=== PATIENT | female | born 1985 | race Caucasian/White ===

== ENCOUNTER 2016-06-02 22:34 | Emergency (ER) | payer MEDICAID ==
[~2016-06-02] VITALS: Ht 27.9 cm; Wt 68.2 kg
[~2016-06-02 22:34] MED LIST: ADVAIR 250/28 DISKUS IH; ALBUTEROL S0.4 MG/ML; ALLERGY MED; ANTI-INFLAMMATORY; CEPHALEXIN500 M1 PO; CLARITIN10 MG PO; CLEOCIN; CLOTRIMAZOLE VA45 GM VG; DICLEGIS PO; ESTRACE1 MG PO; FLEXERIL 1010 MG/TAB PO; IBU800 M1 PO; IMPLANT BIRTH CONTRO; LEVEMIR100 U/ML SQ; LORTAB 5/500 501 TAB PO; LORTAB 7.5/5001 TAB PO; MEXILETINE150 MG PO; MIRENA52 MG IU; MOTRIN 800800 MG/TAB PO; NO HOME MEDICATIONS; NORCO 325 MG-51 TAB PO; NOVOLOG 100U100 U/M1; NOVOLOG 100U100 U/M1 SQ; PERCOCET 325 MG1 TA2 PO; PHENERGAN 25 TA25 MG PO; PRENATAL PO; PROTONIX40 MG PO; SEPTRA DS 8001 TAB PO; SOMA 350MG350 MG/TAB PO; TYLENOL 500MG500 MG PO; TYLENOL PM EXTR1 TA1 PO; ZOFRAN4 M1 PO; ZOLOFT 50MG50 MG PO; [UNRECOGNIZED DRUG - OTHER]
[2016-06-02 22:41] VITALS: BP 128/80; TEMP 98.1
[2016-06-02 23:33] LABS: BASO # 0.1 (0.0-0.2); BASO % 0.7 % (0.0-2.0); EOS # 0.1 (0.0-0.7); EOS % 0.6 % (0-4.0); GRAN # 8.4 (1.4-6.5); GRAN % 67.6 % (42.2-75.2); HEMATOCRIT 40.9 % (37.0-47.0); HEMOGLOBIN 13.9 g/dl (12.5-16.0); LYMPH # 2.9 (1.2-3.4); LYMPH % 23.1 % (20.0-51.0); MEAN CELL VOLUME 89 fl (80.0-100.0); MEAN CORPUSCULAR HEMOGLOBIN 30 pg (27.0-31.0); MEAN CORPUSCULAR HGB CONC 34 g/dl (33.0-37.0); MEAN PLATELET VOLUME 9.5 fl (7.4-10.4); MONO # 0.9 (0.1-0.6); MONO % 7.4 % (1.7-9.3); PLATELET COUNT 337 K/mm3 (130-400); REDCELL DISTRIBUTION WIDTH-CV 11.9 % (11.5-14.5); WHITE BLOOD COUNT 12.4 K/mm3 (4.8-10.8)
[2016-06-02 23:43] LABS: PH 6 (5-8); URINE APPEARANCE Hazy; URINE BACTERIA Rare /hpf; URINE BILIRUBIN Negative (NEGATIVE); URINE BLOOD 2+ (NEGATIVE); URINE COLOR Yellow; URINE GLUCOSE Negative (NEGATIVE); URINE KETONE Negative (NEGATIVE); URINE RBC 0-2 /hpf; URINE UROBILINOGEN Negative (NEGATIVE)
[2016-06-02 23:44] LABS: ADJUSTED CALCIUM 9.5 mg/dL (8.4-10.2); ALANINE AMINOTRANSFERASE 17 U/L (9-52); ALBUMIN 4.1 gm/dL (3.5-5.0); ALKALINE PHOSPHATASE 117 U/L (50-136); ANION GAP 11 mmol/L (7-16); BILIRUBIN,TOTAL 0.6 mg/dL (0.0-1.0); BLOOD UREA NITROGEN 15 mg/dL (7-17); CALCIUM 9.6 mg/dL (8.4-10.2); CARBON DIOXIDE 25 mmol/L (22-30); CHLORIDE 104 mmol/L (98-107); CREATININE, serum 0.65 mg/dL (0.52-1.25); GLUCOSE 108 mg/dL (74-106); LIPASE 112 U/L (23-300); POTASSIUM 3.4 mmol/L (3.4-5.0); SODIUM 140 mmol/L (137-145); TOTAL PROTEIN 7.5 gm/dL (6.4-8.2)
[2016-06-03] MEDS ORDERED: CIPRO 500MG TA500 MG PO (00:01)
[2016-06-03 00:43] VITALS: PULSE 75
== END 2016-06-03 00:43 | disposition home or self-care (01) ==
LOC: COL.ER 22:34
PROVIDERS: Physician Assistant
DX: N39.0 Urinary tract infection, site not specified (principal); R51 Headache; E11.9 Type 2 diabetes mellitus without complications; Z79.4 Long term (current) use of insulin
CPT/HCPCS: J2270; J2405; J2550; J7030

== ENCOUNTER 2016-08-07 21:42 | Emergency (ER) | payer MEDICAID ==
[~2016-08-07] VITALS: Ht 149.9 cm; Wt 70.0 kg
[~2016-08-07 21:42] MED LIST changes: +CIPRO 500MG TA500 MG PO
[2016-08-07 21:44] VITALS: BP 132/62; PULSE 77; TEMP 97.9
[2016-08-07] MEDS ORDERED: PRENATAL1 TA7 PO (21:48)
[2016-08-07 22:22] LABS: BASO # 0.1 (0.0-0.2); BASO % 0.8 % (0.0-2.0); EOS # 0.1 (0.0-0.7); EOS % 0.7 % (0-4.0); GRAN # 8.5 (1.4-6.5); GRAN % 69.2 % (42.2-75.2); HEMATOCRIT 39.6 % (37.0-47.0); HEMOGLOBIN 13.4 g/dl (12.5-16.0); LYMPH # 2.5 (1.2-3.4); LYMPH % 20.4 % (20.0-51.0); MEAN CELL VOLUME 89 fl (80.0-100.0); MEAN CORPUSCULAR HEMOGLOBIN 30 pg (27.0-31.0); MEAN CORPUSCULAR HGB CONC 34 g/dl (33.0-37.0); MEAN PLATELET VOLUME 9.4 fl (7.4-10.4); MONO % 8.1 % (1.7-9.3); PLATELET COUNT 310 K/mm3 (130-400); RED BLOOD COUNT 4.47 M/mm3 (4.10-5.30); WHITE BLOOD COUNT 12.3 K/mm3 (4.8-10.8)
[2016-08-07 22:26] LABS: PH 6 (5-8); URINE APPEARANCE Hazy; URINE BACTERIA None Seen /hpf; URINE BILIRUBIN Negative (NEGATIVE); URINE BLOOD Negative (NEGATIVE); URINE COLOR Straw; URINE GLUCOSE Negative (NEGATIVE); URINE KETONE Negative (NEGATIVE); URINE RBC 0-2 /hpf; URINE UROBILINOGEN Negative (NEGATIVE); URINE WBC 0-2 /hpf
[2016-08-07 22:32] LABS: ADJUSTED CALCIUM 9.3 mg/dL (8.4-10.2); ALBUMIN 4.3 gm/dL (3.5-5.0); BILIRUBIN,TOTAL 0.5 mg/dL (0.0-1.0); CALCIUM 9.5 mg/dL (8.4-10.2); CREATININE, serum 0.72 mg/dL (0.52-1.25); POTASSIUM 3.9 mmol/L (3.4-5.0); TOTAL PROTEIN 7.3 gm/dL (6.4-8.2)
== END 2016-08-07 22:45 | disposition home or self-care (01) ==
LOC: COL.ER 21:42
PROVIDERS: Emergency Medicine
DX: R10.84 Generalized abdominal pain (principal); N92.6 Irregular menstruation, unspecified; E11.9 Type 2 diabetes mellitus without complications; F32.9 Major depressive disorder, single episode, unspecified

== ENCOUNTER 2016-09-06 00:42 | Emergency (ER) | payer MEDICAID ==
[~2016-09-06] VITALS: Ht 149.9 cm; Wt 73.0 kg
[~2016-09-06 00:42] MED LIST changes: +PRENATAL1 TA7 PO
[2016-09-06 00:46] VITALS: TEMP 98.1
[2016-09-06 01:59] LABS: PH 5 (5-8); SQUAMOUS EPITHELIAL 0-2 /hpf; URINE APPEARANCE Turbid; URINE BACTERIA Rare /hpf; URINE BILIRUBIN Negative (NEGATIVE); URINE BLOOD Negative (NEGATIVE); URINE COLOR Amber; URINE GLUCOSE Negative (NEGATIVE); URINE KETONE Trace (NEGATIVE); URINE RBC 0-2 /hpf; URINE UROBILINOGEN Negative (NEGATIVE)
[2016-09-06 02:12] LABS: BASO # 0.1 (0.0-0.2); BASO % 0.6 % (0.0-2.0); EOS # 0.1 (0.0-0.7); EOS % 0.7 % (0-4.0); GRAN % 70.5 % (42.2-75.2); HEMATOCRIT 37.5 % (37.0-47.0); HEMOGLOBIN 12.8 g/dl (12.5-16.0); LYMPH # 2.5 (1.2-3.4); LYMPH % 19.6 % (20.0-51.0); MEAN CELL VOLUME 87 fl (80.0-100.0); MEAN CORPUSCULAR HEMOGLOBIN 30 pg (27.0-31.0); MEAN CORPUSCULAR HGB CONC 34 g/dl (33.0-37.0); MEAN PLATELET VOLUME 9.5 fl (7.4-10.4); MONO % 7.9 % (1.7-9.3); PLATELET COUNT 295 K/mm3 (130-400); WHITE BLOOD COUNT 12.7 K/mm3 (4.8-10.8)
[2016-09-06 02:24] LABS: ADJUSTED CALCIUM 8.7 mg/dL (8.4-10.2); ALBUMIN 4.1 gm/dL (3.5-5.0); BILIRUBIN,TOTAL 0.7 mg/dL (0.0-1.0); CALCIUM 8.8 mg/dL (8.4-10.2); CREATININE, serum 0.81 mg/dL (0.52-1.25); POTASSIUM 3.4 mmol/L (3.4-5.0); TOTAL PROTEIN 7.2 gm/dL (6.4-8.2)
[2016-09-06 02:42] VITALS: BP 129/84; PULSE 81
== END 2016-09-06 02:44 | disposition home or self-care (01) ==
LOC: COL.ER 00:42
PROVIDERS: Nurse Practitioner
DX: R10.2 Pelvic and perineal pain (principal); F32.9 Major depressive disorder, single episode, unspecified; Z87.891 Personal history of nicotine dependence; Z87.59 Personal history of other complications of pregnancy, childbirth and the puerperium; Z90.49 Acquired absence of other specified parts of digestive tract; Z87.19 Personal history of other diseases of the digestive system; Z32.02 Encounter for pregnancy test, result negative

== ENCOUNTER 2016-09-17 21:01 | Emergency (ER) | payer MEDICAID ==
[~2016-09-17] VITALS: Ht 149.9 cm; Wt 86.4 kg
[2016-09-17 21:03] VITALS: BP 111/67; PULSE 91; TEMP 98.5
== END 2016-09-17 22:09 | disposition home or self-care (01) ==
LOC: COL.ER 21:01
DX: R05 Cough (principal); Z32.01 Encounter for pregnancy test, result positive; E11.9 Type 2 diabetes mellitus without complications; Z79.4 Long term (current) use of insulin

== ENCOUNTER 2016-09-19 02:39 | Emergency (ER) | payer MEDICAID ==
[~2016-09-19] VITALS: Ht 149.9 cm; Wt 68.2 kg
[2016-09-19 02:41] VITALS: TEMP 98.3
[2016-09-19 03:29] LABS: VENOUS BLOOD GAS BE -1.9 (-4-4); VENOUS BLOOD GAS SITE VENIPUNCTURE
[2016-09-19 04:04] VITALS: BP 119/68; PULSE 87
== END 2016-09-19 04:04 | disposition home or self-care (01) ==
LOC: COL.ER 02:39
PROVIDERS: Emergency Medicine
DX: O99.512 Diseases of the respiratory system complicating pregnancy, second trimester (principal); J06.9 Acute upper respiratory infection, unspecified; Z3A.16 16 weeks gestation of pregnancy; O99.342 Other mental disorders complicating pregnancy, second trimester; F41.9 Anxiety disorder, unspecified; F32.9 Major depressive disorder, single episode, unspecified; O24.112 Pre-existing type 2 diabetes mellitus, in pregnancy, second trimester; E11.9 Type 2 diabetes mellitus without complications
CPT/HCPCS: J8540

== ENCOUNTER 2016-09-21 22:45 | Emergency (ER) | payer MEDICAID ==
[~2016-09-21] VITALS: Ht 149.9 cm; Wt 74.0 kg
[2016-09-21 22:52] VITALS: TEMP 98.2
[2016-09-21] MEDS ORDERED: PRENATAL (22:57)
[2016-09-22 00:17] LABS: HEMATOCRIT 40.9 % (37.0-47.0); HEMOGLOBIN 13.9 g/dl (12.5-16.0); MEAN CELL VOLUME 87 fl (80.0-100.0); MEAN CORPUSCULAR HEMOGLOBIN 30 pg (27.0-31.0); MEAN CORPUSCULAR HGB CONC 34 g/dl (33.0-37.0); MEAN PLATELET VOLUME 9.3 fl (7.4-10.4); PLATELET COUNT 361 K/mm3 (130-400); REDCELL DISTRIBUTION WIDTH-CV 12.3 % (11.5-14.5)
[2016-09-22 00:19] LABS: ADD PATHOLOGY DIFF REVIEW NO
[2016-09-22 00:21] LABS: PH 5 (5-8); URINE APPEARANCE Clear; URINE BACTERIA Rare /hpf; URINE BILIRUBIN Negative (NEGATIVE); URINE BLOOD Negative (NEGATIVE); URINE COLOR Yellow; URINE GLUCOSE Negative (NEGATIVE); URINE KETONE Negative (NEGATIVE); URINE RBC 0-2 /hpf; URINE UROBILINOGEN Negative (NEGATIVE); URINE WBC 0-2 /hpf
[2016-09-22 00:31] LABS: NEUTROPHILS 72 % (42.0-75.2); TOTAL CELLS COUNTED 100
[2016-09-22 03:34] VITALS: BP 116/76; PULSE 66
[2016-09-22 07:40] LABS: CHLAMYDIA/TRACH by PCR Female NOT DETECTED; NEISSERIA GON by PCR Female NOT DETECTED
== END 2016-09-22 03:34 | disposition home or self-care (01) ==
LOC: COL.ER 22:45
PROVIDERS: Nurse Practitioner
DX: O20.0 Threatened abortion (principal); O26.891 Other specified pregnancy related conditions, first trimester; R10.12 Left upper quadrant pain; Z3A.01 Less than 8 weeks gestation of pregnancy; N89.8 Other specified noninflammatory disorders of vagina

== ENCOUNTER 2016-12-02 14:56 | Emergency (ER) | payer MEDICAID ==
[~2016-12-02] VITALS: Ht 149.9 cm; Wt 70.0 kg
[~2016-12-02 14:56] MED LIST changes: +PRENATAL
[2016-12-02 15:08] VITALS: TEMP 98.6
[2016-12-02 16:00] LABS: BASO % 0.3 % (0.0-2.0); EOS % 0.2 % (0-4.0); GRAN # 11.8 (1.4-6.5); GRAN % 85.5 % (42.2-75.2); HEMATOCRIT 40.7 % (37.0-47.0); HEMOGLOBIN 13.8 g/dl (12.5-16.0); LYMPH # 0.8 (1.2-3.4); LYMPH % 5.6 % (20.0-51.0); MEAN CELL VOLUME 88 fl (80.0-100.0); MEAN CORPUSCULAR HEMOGLOBIN 30 pg (27.0-31.0); MEAN CORPUSCULAR HGB CONC 34 g/dl (33.0-37.0); MEAN PLATELET VOLUME 9.4 fl (7.4-10.4); MONO % 7.5 % (1.7-9.3); PLATELET COUNT 282 K/mm3 (130-400); RED BLOOD COUNT 4.62 M/mm3 (4.10-5.30); REDCELL DISTRIBUTION WIDTH-CV 12.4 % (11.5-14.5); WHITE BLOOD COUNT 13.8 K/mm3 (4.8-10.8)
[2016-12-02 16:25] LABS: ADJUSTED CALCIUM 8.9 mg/dL (8.4-10.2); ALBUMIN 4.2 gm/dL (3.5-5.0); BILIRUBIN,TOTAL 0.9 mg/dL (0.0-1.0); C-REACTIVE PROTEIN 2.2 mg/dL (0.0-0.9); CALCIUM 9.1 mg/dL (8.4-10.2); CREATININE, serum 0.65 mg/dL (0.52-1.25); POTASSIUM 3.5 mmol/L (3.4-5.0); TOTAL PROTEIN 7.8 gm/dL (6.4-8.2)
[2016-12-02] MEDS ORDERED: PHENERGAN 25 TA25 MG PO (18:53)
[2016-12-02 19:38] LABS: PH 5 (5-8); URINE APPEARANCE Clear; URINE BACTERIA None Seen /hpf; URINE BILIRUBIN Negative (NEGATIVE); URINE BLOOD 2+ (NEGATIVE); URINE COLOR Yellow; URINE GLUCOSE Negative (NEGATIVE); URINE KETONE Negative (NEGATIVE); URINE RBC 0-2 /hpf; URINE UROBILINOGEN Negative (NEGATIVE); URINE WBC 0-2 /hpf
[2016-12-02 19:48] VITALS: BP 105/55; PULSE 84
== END 2016-12-02 19:49 | disposition home or self-care (01) ==
LOC: COL.ER 14:56
PROVIDERS: Nurse Practitioner
DX: R10.31 Right lower quadrant pain (principal); R11.2 Nausea with vomiting, unspecified; Z90.49 Acquired absence of other specified parts of digestive tract
CPT/HCPCS: J1170; J2405; J2550; J7030; Q9967

== ENCOUNTER 2017-02-06 10:55 | Emergency (ER) | payer MEDICAID ==
[~2017-02-06] VITALS: Ht 149.9 cm; Wt 68.2 kg
[2017-02-06 10:57] VITALS: BP 137/63; TEMP 98.8
[2017-02-06] MEDS ORDERED: PRENATAL 191 TAB PO (11:02)
[2017-02-06] MEDS ORDERED: LEVEMIR FLEX100 U/ML SQ (11:13)
[2017-02-06 11:33] LABS: COLLECTION METHOD CLEAN CATCH
[2017-02-06 11:50] LABS: MUCOUS Present /lpf; PH 5 (5-8); URINE APPEARANCE Hazy; URINE BACTERIA Rare /hpf; URINE BILIRUBIN Negative (NEGATIVE); URINE BLOOD 1+ (NEGATIVE); URINE COLOR Yellow; URINE GLUCOSE Negative (NEGATIVE); URINE KETONE Negative (NEGATIVE); URINE LEUKOCYTE ESTERASE 1+ (NEGATIVE); URINE PROTEIN(semi-quant) Negative (NEGATIVE); URINE RBC 0-2 /hpf; URINE UROBILINOGEN Negative (NEGATIVE)
[2017-02-06 12:45] LABS: BASO # 0.1 (0.0-0.2); BASO % 0.5 % (0.0-2.0); EOS # 0.1 (0.0-0.7); EOS % 0.5 % (0-4.0); GRAN # 7.3 (1.4-6.5); GRAN % 76.7 % (42.2-75.2); HEMATOCRIT 42.4 % (37.0-47.0); HEMOGLOBIN 14.1 g/dl (12.5-16.0); LYMPH # 1.5 (1.2-3.4); LYMPH % 15.1 % (20.0-51.0); MEAN CELL VOLUME 90 fl (80.0-100.0); MEAN CORPUSCULAR HEMOGLOBIN 30 pg (27.0-31.0); MEAN CORPUSCULAR HGB CONC 33 g/dl (33.0-37.0); MONO # 0.6 (0.1-0.6); MONO % 6.6 % (1.7-9.3); PLATELET COUNT 329 K/mm3 (130-400); RED BLOOD COUNT 4.73 M/mm3 (4.10-5.30); WHITE BLOOD COUNT 9.6 K/mm3 (4.8-10.8)
[2017-02-06 12:55] LABS: ADJUSTED CALCIUM 9.3 mg/dL (8.4-10.2); ALBUMIN 4.7 gm/dL (3.5-5.0); BILIRUBIN,TOTAL 0.5 mg/dL (0.0-1.0); CALCIUM 9.9 mg/dL (8.4-10.2); CREATININE, serum 0.83 mg/dL (0.52-1.25); POTASSIUM 4.3 mmol/L (3.4-5.0)
[2017-02-06 13:28] VITALS: PULSE 68
== END 2017-02-06 13:29 | disposition home or self-care (01) ==
LOC: COL.ER 10:55
PROVIDERS: Physician Assistant
DX: R19.7 Diarrhea, unspecified (principal); R10.9 Unspecified abdominal pain; E11.9 Type 2 diabetes mellitus without complications; Z90.49 Acquired absence of other specified parts of digestive tract; Z32.02 Encounter for pregnancy test, result negative; Z79.4 Long term (current) use of insulin

== ENCOUNTER → 2017-03-11 | Outpatient (CLI) | payer MEDICAID ==
[~2017-03-11] MED LIST changes: +LEVEMIR FLEX100 U/ML SQ; +PRENATAL 191 TAB PO
== END ==
LOC: SUN.DIA 10:34
DX: E11.9 Type 2 diabetes mellitus without complications (principal); Z79.4 Long term (current) use of insulin; Z71.3 Dietary counseling and surveillance; Z87.891 Personal history of nicotine dependence
CPT/HCPCS: G0108

== ENCOUNTER → 2017-03-11 | Outpatient (CLI) | payer MEDICAID | LOC: SUN.DIA | DX: Z01.89 Encounter for other specified special examinations (principal) ==

== ENCOUNTER 2017-05-14 18:26 | Emergency (ER) | payer MEDICAID ==
[~2017-05-14] VITALS: Ht 149.9 cm; Wt 68.2 kg
[2017-05-14 18:40] VITALS: BP 122/78; TEMP 98.6
[2017-05-14 19:42] VITALS: PULSE 83
== END 2017-05-14 19:43 | disposition home or self-care (01) ==
LOC: COL.ER 18:26
DX: B34.9 Viral infection, unspecified (principal); E11.9 Type 2 diabetes mellitus without complications; Z90.49 Acquired absence of other specified parts of digestive tract; Z79.4 Long term (current) use of insulin

== ENCOUNTER → 2017-08-27 | Outpatient (REF) | LOC: ZLAB.WCH 17:48 | DX: Z01.89 Encounter for other specified special examinations (principal) ==

== ENCOUNTER → 2018-01-26 | Outpatient (CLI) | payer MEDICAID | LOC: SUN.DIA 03-24 09:44 | DX: E11.9 Type 2 diabetes mellitus without complications (principal); Z79.4 Long term (current) use of insulin | CPT/HCPCS: G0108 ==

== ENCOUNTER → 2018-02-02 | Outpatient (CLI) | payer MEDICAID | LOC: SUN.DIA 10:40 | DX: E11.9 Type 2 diabetes mellitus without complications (principal); Z79.4 Long term (current) use of insulin | CPT/HCPCS: G0108 ==

== ENCOUNTER → 2018-02-08 | Outpatient (CLI) | payer MEDICAID | LOC: SUN.DIA 13:31 | DX: E11.9 Type 2 diabetes mellitus without complications (principal); Z79.4 Long term (current) use of insulin | CPT/HCPCS: G0108 ==

== ENCOUNTER → 2018-03-21 | Outpatient (CLI) | payer MEDICAID | LOC: SUN.DIA 03-08 13:56 | DX: E11.9 Type 2 diabetes mellitus without complications (principal); Z79.4 Long term (current) use of insulin | CPT/HCPCS: G0108 ==

== ENCOUNTER → 2018-05-02 | Outpatient (CLI) | payer MEDICAID | LOC: SUN.DIA 10:51 | DX: E11.9 Type 2 diabetes mellitus without complications (principal); Z79.4 Long term (current) use of insulin | CPT/HCPCS: G0108 ==

== ENCOUNTER → 2018-05-09 | Outpatient (CLI) | payer MEDICAID | LOC: SUN.DIA 10:44 | DX: E11.9 Type 2 diabetes mellitus without complications (principal); Z79.4 Long term (current) use of insulin | CPT/HCPCS: G0108 ==

== ENCOUNTER 2018-05-13 18:29 | Outpatient (CLI) | payer MEDICAID ==
[~2018-05-13] VITALS: Ht 149.9 cm; Wt 70.0 kg
--- NOTE | 2018-05-13 18:35 | NUR ---
Ambulatory to unit, accompnied by significant other and young son. Pt reports pelvic pressure. Pt orilented to room, monitor, plan of care. Questions invited and answered.
[2018-05-13 19:02] VITALS: BP 118/65; PULSE 91; TEMP 98.3
[2018-05-13] MEDS ORDERED: BENADRYL25 M2 PO (19:26)
[2018-05-13 19:30] VITALS: BP 111/60; PULSE 90
[2018-05-13] MEDS ORDERED: BASAGLAR K100 UNIT/1 SQ (19:30)
--- NOTE | 2018-05-13 19:35 | NUR ---
Repeat SVE with no changes, no bleeding or loss of fluid..
--- NOTE | 2018-05-13 19:50 | NUR ---
Discharge instructions reviewed with pt and spouse. Questions invited AND ANSWERED. AMBULATROY OFF UNIT.
== END 2018-05-13 19:50 | disposition home or self-care (01) ==
LOC: LDRO 18:29
DX: O26.893 Other specified pregnancy related conditions, third trimester (principal); R10.2 Pelvic and perineal pain; Z3A.28 28 weeks gestation of pregnancy

== ENCOUNTER → 2018-05-16 | Outpatient (CLI) | payer MEDICAID ==
[~2018-05-16] MED LIST changes: +BASAGLAR K100 UNIT/1 SQ; +BENADRYL25 M2 PO
== END ==
LOC: SUN.DIA
DX: E11.9 Type 2 diabetes mellitus without complications (principal); Z79.4 Long term (current) use of insulin
CPT/HCPCS: G0108

== ENCOUNTER → 2018-05-23 | Outpatient (CLI) | payer MEDICAID | LOC: SUN.DIA 12:44 | DX: E11.9 Type 2 diabetes mellitus without complications (principal); Z79.4 Long term (current) use of insulin | CPT/HCPCS: G0108 ==

== ENCOUNTER → 2018-06-13 | Outpatient (CLI) | payer MEDICAID | LOC: SUN.DIA 06-07 14:05 | DX: E11.9 Type 2 diabetes mellitus without complications (principal); Z79.4 Long term (current) use of insulin | CPT/HCPCS: G0108 ==

== ENCOUNTER → 2018-06-27 | Outpatient (CLI) | payer MEDICAID | LOC: SUN.DIA 11:11 | DX: E11.9 Type 2 diabetes mellitus without complications (principal); Z79.4 Long term (current) use of insulin | CPT/HCPCS: G0108 ==

== ENCOUNTER → 2018-07-04 | Outpatient (CLI) | payer MEDICAID | LOC: SUN.DIA 10:12 | DX: E11.9 Type 2 diabetes mellitus without complications (principal); Z79.4 Long term (current) use of insulin | CPT/HCPCS: G0108 ==

== ENCOUNTER 2018-07-09 10:01 | Outpatient (CLI) | payer MEDICAID ==
[~2018-07-09] VITALS: Ht 149.9 cm; Wt 72.7 kg
[2018-07-09] MEDS ORDERED: NOVOLOG FLEX100 U/ML SQ (10:15)
--- NOTE | 2018-07-09 10:15 | NUR ---
G7L4 at 36.6 weeks gestation to LDR6 with spouse and child. She c/o having irregular contractions and vaginal pressure. She denies bleeding or leaking of fluid. EFMs explained and applied. FHR 135 bpm and reactive. No CTX per toco or patient reports. VSS. SVE . Plan of care reviewed with patient.
[2018-07-09 10:16] VITALS: BP 116/57; PULSE 75; TEMP 98.2
[2018-07-09] MEDS ORDERED: PRENATAL VITAMI1 TA3 PO (10:16)
== END 2018-07-09 10:45 | disposition home or self-care (01) ==
LOC: LDRO 10:01
DX: O62.9 Abnormality of forces of labor, unspecified (principal); O26.893 Other specified pregnancy related conditions, third trimester; R10.2 Pelvic and perineal pain; Z3A.36 36 weeks gestation of pregnancy

== ENCOUNTER 2018-07-12 13:20 | Outpatient (CLI) | payer MEDICAID ==
[~2018-07-12] VITALS: Ht 149.9 cm; Wt 73.2 kg
[2018-07-12 13:24] VITALS: BP 114/60; PULSE 104; TEMP 98.2
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
--- NOTE | 2018-07-12 14:35 | NUR ---
Repeat SVE with no change. Discharge instructions reviewed.
== END 2018-07-12 14:50 | disposition home or self-care (01) ==
LOC: LDRO 13:20
DX: O62.9 Abnormality of forces of labor, unspecified (principal); O9A.213 Injury, poisoning and certain other consequences of external causes complicating pregnancy, third trimester; O26.893 Other specified pregnancy related conditions, third trimester; R10.2 Pelvic and perineal pain; Z3A.37 37 weeks gestation of pregnancy

== ENCOUNTER → 2018-07-12 | Outpatient (CLI) | payer MEDICAID ==
[~2018-07-12] MED LIST changes: +NOVOLOG FLEX100 U/ML SQ; +PRENATAL VITAMI1 TA3 PO
== END ==
LOC: LDRO 12:27 → SUN.DIA 12:27
DX: E11.9 Type 2 diabetes mellitus without complications (principal); Z79.4 Long term (current) use of insulin
CPT/HCPCS: G0108

== ENCOUNTER 2018-07-16 19:23 | Outpatient (CLI) | payer MEDICAID ==
[2018-07-16] VITALS (8 sets, daily range): BP systolic 115–131; BP diastolic 58–80; PULSE 93–107; TEMP 97.8–97.9
[~2018-07-16] VITALS: Ht 149.9 cm; Wt 74.1 kg
[2018-07-16 22:26] LABS: COLLECTION METHOD CLEAN CATCH
[2018-07-16 22:32] LABS: MUCOUS Present /lpf; PH 5 (5-8); URINE APPEARANCE Hazy; URINE BACTERIA Rare /hpf; URINE BILIRUBIN Negative (NEGATIVE); URINE BLOOD Negative (NEGATIVE); URINE CALCIUM OXALATE CRYSTAL Present /hpf; URINE COLOR Yellow; URINE GLUCOSE Negative (NEGATIVE); URINE KETONE 1+ (NEGATIVE); URINE LEUKOCYTE ESTERASE Negative (NEGATIVE); URINE NITRATE Negative (NEGATIVE); URINE PROTEIN(semi-quant) Negative (NEGATIVE); URINE RBC 0-2 /hpf; URINE UROBILINOGEN Negative (NEGATIVE)
== END 2018-07-16 23:00 | disposition home or self-care (01) ==
LOC: LDRO 19:23
PROVIDERS: Obstetrics & Gynecology
DX: O62.9 Abnormality of forces of labor, unspecified (principal); O46.93 Antepartum hemorrhage, unspecified, third trimester; Z3A.37 37 weeks gestation of pregnancy

== ENCOUNTER 2018-07-18 01:18 | Inpatient (IN) | payer MEDICAID ==
[2018-07-18] VITALS (35 sets, daily range): BP systolic 86–133; BP diastolic 42–88; PULSE 62–113; TEMP 97.9–98.7
[~2018-07-18] VITALS: Ht 149.9 cm; Wt 74.1 kg
--- NOTE | 2018-07-18 01:35 | NUR ---
0135 G7L4 38.1 WEEK GEST TO LR5 WITH C/O CONTRACTIONS. EFM ON. SVE /-2. ADM ASSESSMENT DONE. IS INSULIN DEPENDENT TYPE II DIABETIC. STATES LAST BLOOD SUGAR AT [address] REYES NOTIFIED OF PT AND ASSESSMENT. ORDER TO ADMIT AND START IV OF NS. HISTOLOGY AIDE CALLED FOR EPID PLACEMENT
--- NOTE | 2018-07-18 02:00 | NUR ---
0200 ACCU CHECK DONE = 100. IV NS STARTED. BREATHING THRU CONTRACTIONS.
[2018-07-18 02:14] LABS: HEMOGLOBIN 11.6 g/dl (12.5-16.0); MEAN CELL VOLUME 90 fl (80.0-100.0); MEAN CORPUSCULAR HEMOGLOBIN 31 pg (27.0-31.0); MEAN CORPUSCULAR HGB CONC 34 g/dl (33.0-37.0); PLATELET COUNT 177 K/mm3 (130-400); RED BLOOD COUNT 3.78 M/mm3 (4.10-5.30); REDCELL DISTRIBUTION WIDTH-CV 13.7 % (11.5-14.5)
[2018-07-18] MEDS ORDERED: TYLENOL PM EXTR1 TA1 PO (02:25)
[2018-07-18 02:39] LABS: BAND 4 % (0-10); EOSINOPHIL 1 % (0-4); LYMPHOCYTE 13 % (20.0-51.0); NEUTROPHILS 81 % (42.0-75.2); PLATELET ESTIMATE NORMAL (NORMAL)
--- NOTE | 2018-07-18 04:15 | NUR ---
ACCUCHECK 95
--- NOTE | 2018-07-18 04:25 | NUR ---
DR REYES HERE. SVE. PRACTICE PUSHING, CERVIX REMAINS. TO LL . NOT PUSHING NOW.
--- NOTE | 2018-07-18 04:44 | NUR ---
AROM 0350 CLEAR
--- NOTE | 2018-07-18 06:10 | NUR ---
ACCUCHECK 87
--- NOTE | 2018-07-18 06:26 | NUR ---
ACCU CHECK 91
--- NOTE | 2018-07-18 07:20 | NUR ---
SVE per this RN C/+1. Dr. Fong requested for delivery. 0780-Dr. Fong at bedside. Begins pushing with pt. 0751- of viable male infant attended by Dr. Fong. Cord clamped x 2. Cut from umbilicus. Infant dried and placed on mother's abdomen. Apgars 8//9. Care of to Jany Dewitt RN. 0755- of placenta. Fundus firm at umbilicus. Bleeding WNL. Pitocin bolus infusing. Perineum intact. Pericare performed. Ice pack applied. Pt updated on POC. Safety reviewed. No questions or concerns at this time.
--- NOTE | 2018-07-18 21:45 | NUR ---
RAGHU ACCCARLTONECK 107
[2018-07-19 01:46] VITALS: BP 108/67; PULSE 75; TEMP 98.1
--- NOTE | 2018-07-19 05:53 | NUR ---
PT GAVE OWN BASAGLAR 3 UNITS AT 2130 LAST NIGHT
[2018-07-19 07:25] VITALS: BP 114/73; PULSE 77; TEMP 97.9
[2018-07-19] MEDS ORDERED: IBU600 MG PO (08:34)
--- NOTE | 2018-07-19 09:23 | NUR ---
Initial visit; Mom thanked for looking in on her and offering congratulaions for the the of her first daughter, having four boys at home. thanked Mandi for choosing [facility].
--- NOTE | 2018-07-19 14:46 | NUR ---
plate put in worker met with patient to assess for needs. Patient states this is her 5th child. Patient has a 2year old son at home. Patient states her oldest son was removed by the State and that he had multiple mental health diagnosis. Patient stated she gave up her rights to two sons their their respective fathers as she never got to see them, only paid child support. Patient states she lives with the father of her two youngest children and that he has disability. Father of baby is currently in [place] due to financial bills that are owed. Patient states she does not plan to return to work. Patient states she is not currently feeling that she is anxous or depressed and is aware how to access [facility]. Patient states she has a car seat and all needed supplies for her baby. Patient states she is enrolled in [facility]. Worker provided written resources. Worker filed DCF report due to previous child removed from her care and lack of resources. DCF #[id number]. Worker collaborated with Dr Silva and nursing regarding the above information.
== END 2018-07-19 13:05 | disposition home or self-care (01) | DRG 807 ==
LOC: LDRO 01:18 → OB 01:48 → LDR 01:48 → OB 11:31
PROVIDERS: Obstetrics & Gynecology; ADMIT Obstetrics & Gynecology
PROC: 10E0XZZ Delivery of Products of Conception, External Approach (ICD-10-PCS; principal; 2018-07-18)
DX: O24.113 Pre-existing type 2 diabetes mellitus, in pregnancy, third trimester (principal); Z37.0 Single live birth; O99.344 Other mental disorders complicating childbirth; F32.9 Major depressive disorder, single episode, unspecified; F41.9 Anxiety disorder, unspecified; O99.612 Diseases of the digestive system complicating pregnancy, second trimester; K21.9 Gastro-esophageal reflux disease without esophagitis; Z79.4 Long term (current) use of insulin; Z3A.38 38 weeks gestation of pregnancy
CPT/HCPCS: J2405; J2590; J2795; J7030

== ENCOUNTER 2019-01-01 14:16 | Emergency (ER) | payer MEDICAID ==
[~2019-01-01] VITALS: Ht 149.9 cm; Wt 68.2 kg
[~2019-01-01 14:16] MED LIST changes: +IBU600 MG PO
[2019-01-01 14:22] VITALS: BP 126/58; TEMP 98.3
[2019-01-01 15:27] VITALS: PULSE 72
== END 2019-01-01 15:27 | disposition home or self-care (01) ==
LOC: COL.ER 14:16
DX: M25.532 Pain in left wrist (principal); E11.9 Type 2 diabetes mellitus without complications; Z79.4 Long term (current) use of insulin

== ENCOUNTER 2019-03-31 21:26 | Emergency (ER) | payer MEDICAID ==
[~2019-03-31] VITALS: Ht 149.9 cm; Wt 68.2 kg
[2019-03-31 21:39] VITALS: TEMP 97.6
[2019-04-01 01:04] VITALS: BP 124/62; PULSE 81
[2019-04-02] MEDS ORDERED: FLEXERIL 1010 MG/TAB PO (16:44)
== END 2019-04-01 01:05 | disposition home or self-care (01) ==
LOC: COL.ER 21:26
DX: S40.012A Contusion of left shoulder, initial encounter (principal); M54.5 Low back pain; R40.2412 Glasgow coma scale score 13-15, at arrival to emergency department; Z79.4 Long term (current) use of insulin; W00.0XXA Fall on same level due to ice and snow, initial encounter; Y92.009 Unspecified place in unspecified non-institutional (private) residence as the place of occurrence of the external cause

== ENCOUNTER 2019-04-02 15:48 | Emergency (ER) | payer MEDICAID ==
[~2019-04-02] VITALS: Ht 149.9 cm; Wt 68.2 kg
[2019-04-02 16:00] VITALS: BP 116/56; TEMP 97.3
[2019-04-02] MEDS ORDERED: FLEXERIL 1010 MG/TAB PO (16:44)
[2019-04-02 17:39] VITALS: PULSE 73
== END 2019-04-02 17:39 | disposition home or self-care (01) ==
LOC: COL.ER 15:48
PROVIDERS: Emergency Medicine
DX: S39.011A Strain of muscle, fascia and tendon of abdomen, initial encounter (principal); M54.5 Low back pain; Z88.1 Allergy status to other antibiotic agents; W00.0XXA Fall on same level due to ice and snow, initial encounter

== ENCOUNTER → 2019-12-25 | Outpatient (CLI) | payer MEDICAID | LOC: DIA.ED 09:20 | DX: O24.419 Gestational diabetes mellitus in pregnancy, unspecified control (principal) | CPT/HCPCS: G0108 ==

== ENCOUNTER 2020-01-02 16:29 | Emergency (ER) | payer MEDICAID ==
[~2020-01-02] VITALS: Ht 149.9 cm; Wt 72.7 kg
[2020-01-02 16:31] VITALS: BP 115/59; TEMP 97.9
[2020-01-02] MEDS ORDERED: CRUTCHES MC (17:27)
[2020-01-02 18:19] VITALS: PULSE 79
== END 2020-01-02 18:10 | disposition home or self-care (01) ==
LOC: COL.ER 16:29
DX: O9A.212 Injury, poisoning and certain other consequences of external causes complicating pregnancy, second trimester (principal); S93.401A Sprain of unspecified ligament of right ankle, initial encounter; E11.9 Type 2 diabetes mellitus without complications; Z3A.15 15 weeks gestation of pregnancy; Z88.1 Allergy status to other antibiotic agents; Z79.4 Long term (current) use of insulin; W10.1XXA Fall (on)(from) sidewalk curb, initial encounter; Y92.410 Unspecified street and highway as the place of occurrence of the external cause

== ENCOUNTER 2020-01-07 15:09 | Emergency (ER) | payer MEDICAID ==
[~2020-01-07] VITALS: Ht 149.9 cm; Wt 72.7 kg
[~2020-01-07 15:09] MED LIST changes: +CRUTCHES MC
[2020-01-07 15:14] VITALS: TEMP 98.3
[2020-01-07] MEDS ORDERED: TYLENOL 500MG500 MG PO (15:25)
[2020-01-07 16:30] VITALS: BP 126/61; PULSE 92
== END 2020-01-07 16:30 | disposition home or self-care (01) ==
LOC: COL.ER 15:09
DX: S93.401A Sprain of unspecified ligament of right ankle, initial encounter (principal); F17.200 Nicotine dependence, unspecified, uncomplicated; Z90.49 Acquired absence of other specified parts of digestive tract; W19.XXXA Unspecified fall, initial encounter

== ENCOUNTER → 2020-01-10 | Outpatient (CLI) | payer MEDICAID | LOC: DIA.ED | DX: O24.419 Gestational diabetes mellitus in pregnancy, unspecified control (principal); Z79.4 Long term (current) use of insulin | CPT/HCPCS: G0108 ==

== ENCOUNTER → 2020-01-31 | Outpatient (CLI) | payer MEDICAID | LOC: DIA.ED 08:06 | DX: O24.419 Gestational diabetes mellitus in pregnancy, unspecified control (principal); Z79.4 Long term (current) use of insulin | CPT/HCPCS: G0108 ==

== ENCOUNTER 2020-03-06 11:00 | Outpatient (RCR) | payer MEDICAID ==
[2020-04-16] MEDS ORDERED: PRENATAL TABLET PO (09:42)
[2020-04-16] MEDS ORDERED: UNISOM25 MG PO (09:42)
[2020-04-16] MEDS ORDERED: BENADRYL25 M2 PO (09:42)
== END 2020-04-15 | disposition home or self-care (01) ==
LOC: MKS.ESL.PT
DX: S93.401A Sprain of unspecified ligament of right ankle, initial encounter (principal)

== ENCOUNTER 2020-04-16 09:15 | Outpatient (CLI) | payer MEDICAID ==
[~2020-04-16] VITALS: Ht 149.9 cm; Wt 76.4 kg
--- NOTE | 2020-04-16 09:20 | NUR ---
919- Pt arrives on unit ambulatory with complaints of intermittent lower abd cramping, vaginal pressure and feeling like she "is peeing herself more frequently". Pt into bathroom, Cup given to CCUA. 924- Pt into bed, EFM and TOCO on and tracing. Pt denies VB and regular contractions. Pt denies intercourse in the past 24hrs. +FM per Pt. 929- Amniotrace swab by this RN, negative. SVE closed/high. Romy Marquez RN at bedside to assist with admission.
[2020-04-16] MEDS ORDERED: PRENATAL TABLET PO (09:42)
[2020-04-16] MEDS ORDERED: BENADRYL25 M2 PO (09:42)
[2020-04-16] MEDS ORDERED: UNISOM25 MG PO (09:42)
[2020-04-16 10:04] VITALS: BP 121/58; PULSE 82; TEMP 97.9
== END 2020-04-16 10:15 | disposition home or self-care (01) ==
LOC: LDRO 09:15
DX: O62.9 Abnormality of forces of labor, unspecified (principal); Z3A.30 30 weeks gestation of pregnancy

== ENCOUNTER 2020-05-13 14:56 | Outpatient (CLI) | payer MEDICAID ==
[~2020-05-13] VITALS: Ht 149.9 cm; Wt 77.3 kg
[~2020-05-13 14:56] MED LIST changes: +PRENATAL TABLET PO; +UNISOM25 MG PO
--- NOTE | 2020-05-13 15:00 | NUR ---
1500- Pt arrives on unit ambulatory with complaints of constant lower back pain and pelvic pain. Denies regular contractions, LOF, or VB. +FM per Pt. 1504- Pt into bed, EFM and TOCO on and tracing. O2 sat monitor on and tracing maternal HR. VSS. Assessments completed. Pt given water to drink and call light within reach.
[2020-05-13] MEDS ORDERED: LANTUS SOLOS100 U/ML SQ (15:21)
[2020-05-13 15:30] VITALS: BP 120/64; PULSE 102
[2020-05-13 16:10] VITALS: BP 111/59; PULSE 109
--- NOTE | 2020-05-13 16:20 | NUR ---
1610- EFM and TOCO off. Pt up to change into street clothes. 1615- Discharge paperwork given and explained. Pt denies questions. 1620- Pt ambulates off unit in stable condition.
== END 2020-05-13 16:20 | disposition home or self-care (01) ==
LOC: LDRO 14:56
DX: O26.899 Other specified pregnancy related conditions, unspecified trimester (principal); M54.5 Low back pain; R10.2 Pelvic and perineal pain; Z3A.01 Less than 8 weeks gestation of pregnancy

== ENCOUNTER 2020-05-27 10:52 | Outpatient (CLI) | payer MEDICAID ==
[~2020-05-27] VITALS: Ht 149.9 cm; Wt 77.7 kg
[~2020-05-27 10:52] MED LIST changes: +LANTUS SOLOS100 U/ML SQ
[2020-05-27 11:05] VITALS: BP 141/67; PULSE 92; TEMP 98.2
--- NOTE | 2020-05-27 11:29 | NUR ---
1105 PATIENT HERE FOR COMPLAINTS OF ALOT OF PRESSURE IN BUTTOCKS. PATIENT STATES THAT SHE IS SO UNCOMFORTABLE THAT SHE IS UNABLE TO EATOR DRINK ANYTHING. SVE BY A SUZANNE RN FT/40/HIGH. IRREGULAR CONTRACTIONS ON MONITOR , PATIENT STATES IS NOT FEELING ANY CONTRACTIONS. FHT [address] DÍAZ CALLED AND UPDATED AND ORDERS TO MONITOR PATIENT FOR HOUR IF NO CHANGE MAY SEND HOME
[2020-05-27 12:23] VITALS: BP 122/59; PULSE 87
--- NOTE | 2020-05-27 12:24 | NUR ---
1210 SVE UNCHANGED. ALL DISCHARGE IN STRUCTIONS GIVEN TO PATIENT WITH VERBAL UNDERSTANDING NOTED. PATIENT DISMISSED AT THIS TIME.
== END 2020-05-27 12:26 | disposition home or self-care (01) ==
LOC: LDRO 10:52 → LDR 10:52 → LDRO 11:10 → LDR 12:26
DX: O26.893 Other specified pregnancy related conditions, third trimester (principal); R10.9 Unspecified abdominal pain; Z3A.36 36 weeks gestation of pregnancy
CPT/HCPCS: OP

== ENCOUNTER 2020-06-06 11:20 | Outpatient (CLI) | payer MEDICAID ==
[~2020-06-06] VITALS: Ht 149.9 cm; Wt 78.6 kg
--- NOTE | 2020-06-06 11:25 | NUR ---
1125- Pt presents to unit ambulatory with complaints of SROM last night. She states she has had 2 other gushes of fluid since then. She denies UCs or vaginal bleeding. States she has not felt baby move this morning. Pt into bathroom, changes into gown. 1128- EFM and TOCO on and tracing. VSS. 1134- SVE, amniotrace negative, /-3, head ballotable, no fluid noted with exam. Accel heard with scalp stimulation. 1148- Pt repostioned to , monitors adjusted.
[2020-06-06 11:50] VITALS: BP 125/60; PULSE 116; TEMP 98.1
[2020-06-06 12:10] VITALS: BP 115/59; PULSE 94
--- NOTE | 2020-06-06 12:25 | NUR ---
1210- Plan to discharge home, labor precautions given. EFM and TOCO off. Pt up to change into gown. 1220- Discharge paperwork given and explained. Pt denies questions at this time. Pt ambulates off unit in stable condition.
[2020-10-26] MEDS ORDERED: ZOFRAN ODT4 MG PO (12:49)
== END 2020-06-06 12:25 | disposition home or self-care (01) ==
LOC: LDRO 11:20
DX: O42.913 Preterm premature rupture of membranes, unspecified as to length of time between rupture and onset of labor, third trimester (principal); Z3A.38 38 weeks gestation of pregnancy

== ENCOUNTER 2020-06-08 01:30 | Inpatient (IN) | payer MEDICAID ==
[~2020-06-08] VITALS: Ht 152.4 cm; Wt 77.7 kg
[2020-06-08] VITALS (14 sets, daily range): BP systolic 99–128; BP diastolic 54–81; PULSE 61–91; TEMP 97.5–98.2
--- NOTE | 2020-06-08 01:40 | NUR ---
PT TO UNIT AMBULATORY WITH COMPLAINTS OF CONTRACTIONS. PT IS ORIENTED TO ROOM, CHANGED INTO GOWN, EFM X2 APPLIED, AMNIOSWAB -, VS OBTAINED, SVE OF /-3.
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
[2020-06-08 03:33] LABS: HEMOGLOBIN 12.9 g/dl (12.5-16.0); MEAN CELL VOLUME 91 fl (80.0-100.0); MEAN CORPUSCULAR HEMOGLOBIN 32 pg (27.0-31.0); MEAN CORPUSCULAR HGB CONC 35 g/dl (33.0-37.0); MEAN PLATELET VOLUME 9.9 fl (7.4-10.4); PLATELET COUNT 202 K/mm3 (130-400); RED BLOOD COUNT 4.05 M/mm3 (4.10-5.30); REDCELL DISTRIBUTION WIDTH-CV 14.4 % (11.5-14.5)
[2020-06-08 04:07] LABS: BAND 6 % (0-10); LYMPHOCYTE 17 % (20.0-51.0); NEUTROPHILS 69 % (42.0-75.2); PLATELET ESTIMATE DECREASED (NORMAL)
[2020-06-08 04:36] LABS: TRICYCLIC ANTIDEPRESS URINE NEGATIVE
[2020-06-08] MEDS ORDERED: MOTRIN 800800 MG/TAB PO (21:10)
[2020-06-09] MEDS ORDERED: PERCOCET 325 MG1 TA2 PO (08:51)
[2020-06-09 09:30] VITALS: BP 122/71; PULSE 94; TEMP 98.2
[2020-10-26] MEDS ORDERED: ZOFRAN ODT4 MG PO (12:49)
== END 2020-06-09 12:00 | disposition home or self-care (01) | DRG 807 ==
LOC: LDRO 01:30 → LDR 02:45 → OB 06:05
PROVIDERS: ADMIT Obstetrics & Gynecology
PROC: 10E0XZZ Delivery of Products of Conception, External Approach (ICD-10-PCS; principal; 2020-06-08)
PROC: 0KQM0ZZ Repair Perineum Muscle, Open Approach (ICD-10-PCS; 2020-06-08)
DX: O24.424 Gestational diabetes mellitus in childbirth, insulin controlled (principal); Z37.0 Single live birth; O99.344 Other mental disorders complicating childbirth; F41.9 Anxiety disorder, unspecified; F32.9 Major depressive disorder, single episode, unspecified; O69.81X0 Labor and delivery complicated by cord around neck, without compression, not applicable or unspecified; O70.1 Second degree perineal laceration during delivery; Z3A.38 38 weeks gestation of pregnancy
CPT/HCPCS: J2590; J7120

== ENCOUNTER 2020-07-28 14:45 | Emergency (ER) | payer MEDICAID ==
[~2020-07-28] VITALS: Ht 149.9 cm; Wt 68.2 kg
[2020-07-28 14:52] VITALS: TEMP 97.6
[2020-07-28 15:23] LABS: HEMATOCRIT 45.7 % (37.0-47.0); HEMOGLOBIN 14.9 g/dl (12.5-16.0); MEAN CELL VOLUME 91 fl (80.0-100.0); MEAN CORPUSCULAR HEMOGLOBIN 30 pg (27.0-31.0); MEAN CORPUSCULAR HGB CONC 33 g/dl (33.0-37.0); MEAN PLATELET VOLUME 9.6 fl (7.4-10.4); PLATELET COUNT 264 K/mm3 (130-400); REDCELL DISTRIBUTION WIDTH-CV 12.3 % (11.5-14.5)
[2020-07-28 15:37] LABS: ALBUMIN 4.5 gm/dL (3.5-5.0); BILIRUBIN,TOTAL 0.8 mg/dL (0.0-1.0); C-REACTIVE PROTEIN 1.3 mg/dL (0.0-0.9); CALCIUM 9.1 mg/dL (8.4-10.2); CREATININE, serum 0.67 (0.52-1.25); POTASSIUM 3.5 mmol/L (3.4-5.0); TOTAL PROTEIN 8.4 gm/dL (6.4-8.2)
[2020-07-28 15:44] LABS: BAND 4 % (0-10); HYPOCHROMIA 1+; LYMPHOCYTE 4 % (20.0-51.0); NEUTROPHILS 89 % (42.0-75.2)
[2020-07-28 15:45] LABS: PLATELET ESTIMATE NORMAL (NORMAL)
[2020-07-28 16:27] LABS: COLLECTION METHOD CLEAN CATCH
[2020-07-28 16:38] LABS: MUCOUS Present /lpf; PH 5 (5-8); URINE APPEARANCE Cloudy; URINE BACTERIA Rare /hpf; URINE BILIRUBIN Negative (NEGATIVE); URINE BLOOD 1+ (NEGATIVE); URINE COLOR Yellow; URINE GLUCOSE Negative (NEGATIVE); URINE KETONE Trace (NEGATIVE); URINE LEUKOCYTE ESTERASE Negative (NEGATIVE); URINE NITRATE Negative (NEGATIVE); URINE PROTEIN(semi-quant) 1+ (NEGATIVE); URINE UROBILINOGEN Negative (NEGATIVE)
[2020-07-28 18:34] VITALS: BP 135/81; PULSE 98
[2020-10-26] MEDS ORDERED: ZOFRAN ODT4 MG PO (12:49)
== END 2020-07-28 18:38 | disposition home or self-care (01) ==
LOC: COL.ER 14:45
PROVIDERS: Nurse Practitioner
DX: R10.9 Unspecified abdominal pain (principal); R11.2 Nausea with vomiting, unspecified; R19.7 Diarrhea, unspecified; Z88.1 Allergy status to other antibiotic agents; Z87.891 Personal history of nicotine dependence
CPT/HCPCS: J1885; J2405; J2550; J7030

== ENCOUNTER → 2020-10-26 | Emergency (ER) | payer MEDICAID ==
[~2020-10-26] VITALS: Ht 149.9 cm; Wt 68.2 kg
[~2020-10-26] MED LIST changes: +ZOFRAN ODT4 MG PO
[2020-10-26 10:05] VITALS: BP 125/69; PULSE 75; TEMP 97.2
[2020-10-26 11:50] LABS: BASO # 0.1 (0.0-0.2); BASO % 0.6 % (0.0-2.0); EOS % 0.3 % (0-4.0); GRAN # 8.2 (1.4-6.5); GRAN % 82.3 % (42.2-75.2); HEMATOCRIT 44.9 % (37.0-47.0); HEMOGLOBIN 15.1 g/dl (12.5-16.0); LYMPH # 1.2 (1.2-3.4); LYMPH % 11.7 % (20.0-51.0); MEAN CELL VOLUME 90 fl (80.0-100.0); MEAN CORPUSCULAR HEMOGLOBIN 30 pg (27.0-31.0); MEAN CORPUSCULAR HGB CONC 34 g/dl (33.0-37.0); MEAN PLATELET VOLUME 9.7 fl (7.4-10.4); MONO # 0.5 (0.1-0.6); MONO % 4.5 % (1.7-9.3); PLATELET COUNT 322 K/mm3 (130-400); RED BLOOD COUNT 4.98 M/mm3 (4.10-5.30); REDCELL DISTRIBUTION WIDTH-CV 12.2 % (11.5-14.5)
[2020-10-26 11:52] LABS: ALBUMIN 4.7 gm/dL (3.5-5.0); BILIRUBIN,TOTAL 0.8 mg/dL (0.0-1.0); CALCIUM 9.7 mg/dL (8.4-10.2); CREATININE, serum 0.65 (0.52-1.25); POTASSIUM 3.9 mmol/L (3.4-5.0); TOTAL PROTEIN 8.7 gm/dL (6.4-8.2)
== END ==
LOC: COL.ER 09:43
PROVIDERS: Personal Emergency Response Attendant
DX: R11.2 Nausea with vomiting, unspecified (principal); R19.7 Diarrhea, unspecified
CPT/HCPCS: J2405; J7030

== ENCOUNTER 2021-03-02 21:28 | Emergency (ER) | payer MEDICAID ==
[~2021-03-02] VITALS: Ht 162.6 cm; Wt 84.1 kg
[2021-03-02 21:42] VITALS: TEMP 97
[2021-03-02 22:10] LABS: HEMATOCRIT 45.2 % (37.0-47.0); HEMOGLOBIN 15.5 g/dl (12.5-16.0); MEAN CELL VOLUME 87 fl (80.0-100.0); MEAN CORPUSCULAR HEMOGLOBIN 30 pg (27.0-31.0); MEAN CORPUSCULAR HGB CONC 34 g/dl (33.0-37.0); MEAN PLATELET VOLUME 10.1 fl (7.4-10.4); PLATELET COUNT 227 K/mm3 (130-400); RED BLOOD COUNT 5.18 M/mm3 (4.10-5.30); REDCELL DISTRIBUTION WIDTH-CV 12.6 % (11.5-14.5)
[2021-03-02] MEDS ORDERED: FLEXERIL 1010 MG/TAB PO (22:11)
[2021-03-02 22:25] LABS: CALCIUM 9.6 mg/dL (8.4-10.2); CREATININE, serum 0.83 mg/dL (0.57-1.11); POTASSIUM 5.4 mmol/L (3.5-4.5); TOTAL PROTEIN 9.4 gm/dL (6.2-8.1)
[2021-03-02 23:04] LABS: BAND 7 % (0-10); LYMPHOCYTE 13 % (20.0-51.0); NEUTROPHILS 73 % (42.0-75.2)
[2021-03-02 23:05] LABS: PLATELET ESTIMATE NORMAL (NORMAL)
[2021-03-03] MEDS ORDERED: ZOFRAN ODT4 MG PO (00:24)
[2021-03-03 00:49] VITALS: BP 112/56; PULSE 107
[2021-03-03 07:45] LABS: COLLECTION METHOD CLEAN CATCH
[2021-03-03 08:09] LABS: AMORPHOUS CRYSTAL Present (NOT PRESENT); MUCOUS Present (NOT PRESENT); PH 5 (5-8); SQUAMOUS EPITHELIAL None Seen /hpf (0-10); URINE APPEARANCE Turbid (CLEAR/HAZY); URINE BACTERIA None Seen (NONE SEEN); URINE BILIRUBIN Negative (NEGATIVE); URINE BLOOD 2+ (NEGATIVE); URINE COLOR Yellow (YELLOW); URINE GLUCOSE Negative (NEGATIVE); URINE KETONE 1+ (NEGATIVE); URINE LEUKOCYTE ESTERASE Negative (NEGATIVE); URINE NITRATE Negative (NEGATIVE); URINE PROTEIN(semi-quant) Negative (NEGATIVE); URINE RBC None Seen /hpf (0-2); URINE UROBILINOGEN Negative (NEGATIVE)
== END 2021-03-03 00:49 | disposition home or self-care (01) ==
LOC: COL.ER 21:28
PROVIDERS: Nurse Practitioner Primary Care
DX: A08.4 Viral intestinal infection, unspecified (principal); Z32.02 Encounter for pregnancy test, result negative
CPT/HCPCS: J2405; J2550; J7030; Q9967

== ENCOUNTER 2023-11-04 20:13 | Emergency (ER) | payer MEDICAID ==
[~2023-11-04] VITALS: Ht 149.9 cm; Wt 68.2 kg
[~2023-11-04 20:13] MED LIST changes: +PROMETHAZINE12.5 M5 PO
[2023-11-04 23:20] LABS: HEMOGLOBIN 14.7 g/dl (12.5-16.0); MEAN CELL VOLUME 88 fl (80.0-100.0); MEAN CORPUSCULAR HEMOGLOBIN 30 pg (27-31); MEAN CORPUSCULAR HGB CONC 34 g/dl (33.0-37.0); MEAN PLATELET VOLUME 9.5 fl (7.4-10.4); PLATELET COUNT 296 K/mm3 (130-400); RED BLOOD COUNT 4.88 M/mm3 (4.10-5.30); REDCELL DISTRIBUTION WIDTH-CV 11.9 % (11.5-14.5)
[2023-11-04] MEDS ORDERED: NS 1,000 ML IV ONE (23:30)
[2023-11-04] MEDS ORDERED: droPERidol 2.5 MG/ML 2 ML VIAL IV ONE (23:30)
[2023-11-04 23:38] LABS: ALBUMIN 4.1 g/dL (3.5-5.0); BILIRUBIN,TOTAL 0.9 mg/dL (0.2-1.2); C-REACTIVE PROTEIN 0.44 mg/dL (0.00-0.50); CALCIUM 9.3 mg/dL (8.4-10.2); CREATININE, serum 0.83 mg/dL (0.57-1.11); POTASSIUM 3.8 mEq/L (3.5-4.5); TOTAL PROTEIN 7.6 g/dl (6.2-8.1)
[2023-11-04 23:46] LABS: BAND 1 % (0-10); LYMPHOCYTE 4 % (20.0-51.0); NEUTROPHILS 92 % (42.0-75.2); PLATELET ESTIMATE NORMAL (NORMAL)
[2023-11-04 23:49] LABS: COLLECTION METHOD CLEAN CATCH
[2023-11-05 00:01] LABS: URINE APPEARANCE TURBID (CLEAR/HAZY); URINE BLOOD TRACE (NEGATIVE); URINE COLOR YELLOW (YELLOW); URINE GLUCOSE NEGATIVE (NEGATIVE); URINE KETONE 1+ (NEGATIVE); URINE NITRATE NEGATIVE (NEGATIVE); URINE PROTEIN(semi-quant) TRACE (NEGATIVE)
[2023-11-05] MEDS ORDERED: Iohexol 300 - 100 ML VIAL IV ONE (00:19)
[2023-11-05] MEDS ORDERED: NS 50 ML IV SCH (00:20)
[2023-11-05 00:22] LABS: AMORPHOUS CRYSTAL PRESENT (NOT PRESENT); URINE BACTERIA MANY /hpf (NONE SEEN); URINE RBC 0-2 /hpf (0-2); URINE WBC 0-2 /hpf (0-2)
[2023-11-05] MEDS ORDERED: Home Ondansetron ODT 4 MG #2 ODT/PACK PO ONE (02:00)
[2023-11-05] MEDS ORDERED: ZOFRAN ODT4 MG PO (02:02)
[2023-11-05 02:09] VITALS: BP 134/77; PULSE 77; TEMP 98.1
== END 2023-11-05 02:14 | disposition home or self-care (01) ==
LOC: COL.ER 20:13
PROVIDERS: Nurse Practitioner
DX: R10.84 Generalized abdominal pain (principal); R19.7 Diarrhea, unspecified; R11.10 Vomiting, unspecified
CPT/HCPCS: J1790; J7030; Q9967